=== PATIENT | male | born 1955 | race Caucasian/White ===

== ENCOUNTER 2022-05-11 05:23 | Day surgery (SDC) | payer OTHER ==
[2022-05-07 13:35] VITALS: BMI 27.8
[2022-05-11 11:58] VITALS: RESP 18
[2022-05-11] MEDS ORDERED: MIDAZOLAM HCL 2 MG/2 ML SINGLE DOSE VIAL ONE (13:11)
[2022-05-11 14:49] VITALS: BP 96/49; PULSE 85; TEMP 98.2
== END 2022-05-11 15:20 | disposition home or self-care (01) ==
LOC: JASU-SURG 05:23
PROVIDERS: ATTEND Urology
PROC: 0TF4XZZ Fragmentation in Left Kidney Pelvis, External Approach (ICD-10-PCS; principal; 2022-05-11 13:14)
DX: N20.0 Calculus of kidney (principal)
CPT/HCPCS: 82962

== ENCOUNTER 2022-08-31 03:42 | Day surgery (SDC) | payer OTHER ==
[2022-08-27 13:54] VITALS: BMI 26.3
[2022-08-31 06:22] VITALS: RESP 16
[2022-08-31] MEDS ORDERED: LIDOCAINE HCL/PF 2% SDV 5ML VIAL ONE (06:50)
[2022-08-31] MEDS ORDERED: SODIUM CHLORIDE 0.9% P/F 10 ML VIAL IJ ONE (06:50)
[2022-08-31] MEDS ORDERED: ceFAZolin SODIUM 1 GM VIAL ONE (06:50)
[2022-08-31] MEDS ORDERED: PROPOFOL 60 ML ONE (06:50)
[2022-08-31] MEDS ORDERED: MIDAZOLAM HCL 2 MG/2 ML SINGLE DOSE VIAL ONE (07:45)
[2022-08-31 09:43] VITALS: BP 135/72; PULSE 88; TEMP 97.5
== END 2022-08-31 10:09 | disposition home or self-care (01) ==
LOC: JASU-SURG 03:42
PROVIDERS: ATTEND Urology
PROC: 0TF4XZZ Fragmentation in Left Kidney Pelvis, External Approach (ICD-10-PCS; principal; 2022-08-31 08:00)
DX: N20.0 Calculus of kidney (principal)
CPT/HCPCS: 82962

== ENCOUNTER 2023-07-05 04:18 | Day surgery (SDC) | payer OTHER ==
[2023-06-30 11:56] VITALS: BMI 25.7
[2023-07-05] MEDS ORDERED: MIDAZOLAM HCL 2 MG/2 ML SINGLE DOSE VIAL ONE (09:21)
[2023-07-05 13:51] VITALS: RESP 18; TEMP 97.8
[2023-07-05 14:01] VITALS: PULSE 74
[2023-07-05 14:05] VITALS: BP 120/69
== END 2023-07-05 12:55 | disposition home or self-care (01) ==
LOC: JASU-SURG 04:18
PROVIDERS: ATTEND Urology
PROC: 0TF4XZZ Fragmentation in Left Kidney Pelvis, External Approach (ICD-10-PCS; principal; 2023-07-05 09:30)
DX: N20.0 Calculus of kidney (principal)
CPT/HCPCS: 82962